=== PATIENT | female | born 1960 | race Caucasian/White ===

== ENCOUNTER → 2016-08-11 | Outpatient (CLI) | payer OTHER | LOC: HEART CORB 09:51 | DX: R00.2 Palpitations (principal); R07.89 Other chest pain; R06.02 Shortness of breath | CPT/HCPCS: 93306 ==

== ENCOUNTER → 2022-01-09 | Outpatient (CLI) | payer OTHER | LOC: SLEEP 09:13 | DX: G47.33 Obstructive sleep apnea (adult) (pediatric) (principal); R06.83 Snoring | CPT/HCPCS: 95810 ==